=== PATIENT | female | born 1965 | race Two or more races ===

== ENCOUNTER 2025-06-27 01:07 | Emergency (ER) | payer OTHER ==
[~2025-06-27] VITALS: Ht 154.9 cm; Wt 77.1 kg
[2025-06-27] MEDS ORDERED: SYNTHROID100 MCG PO (01:15)
[2025-06-27] MEDS ORDERED: CORTISONE60 GM TP (01:15)
[2025-06-27] MEDS ORDERED: EZALLOR SPRINKL20 MG PO (01:16)
[2025-06-27] MEDS ORDERED: ATORVASTATIN CA10 MG PO (01:16)
[2025-06-27] MEDS ORDERED: DDAVP0.1 MG PO (01:16)
[2025-06-27] MEDS ORDERED: SEMAGLUTIDE (01:17)
[2025-06-27] MEDS ORDERED: METOCLOPRAMIDE HCL 10 MG TABLET PO STA (02:05)
[2025-06-27] MEDS ORDERED: FAMOtidine 10 MG/ML (4ML VIAL) IV PUSH STA (02:07)
[2025-06-27] MEDS ORDERED: 0.9 % SODIUM CHLORIDE 1,000 ML IV STA (02:07)
[2025-06-27] MEDS ORDERED: ONDANSETRON HCL 2 MG/ML VIAL IV STA (02:07)
[2025-06-27 02:45] LABS: BASO % 1.3 % (0.1-1.2); EOS # 0.14 (0.04-0.54); EOS % 1.3 % (0.7-7.0); LYMPH # 1.39 (1.18-3.74); LYMPH % 13.0 % (19.3-53.1); MEAN PLATELET VOLUME 10.70 fl (9.4-12.4); MONO # 0.78 (0.24-0.82); MONO % 7.3 % (4.7-12.5); NEUT # 8.23 (1.56-6.13); NEUT % 76.9 % (34.0-71.1); RED CELL DISTRIBUTION WIDTH 13.2 % (11.6-14.4)
[2025-06-27 03:06] LABS: ALT/SGPT 48.0 U/L (12-78); AST/SGOT 19.0 U/L (15-37); BILIRUBIN TOTAL 1.25 mg/dL (0.3-1.2); BILIRUBIN,CONJUGATED 0.29 mg/dL (0.0-0.2); BUN CREA RATIO 12.0 (7.0-25.0); GFR 45.39; GLOBULINA 4.2 G/DL (2.4-3.5); GLUCOSE FASTING 96.0 mg/dL (65-100); OSMOLALITY SERUM 282.0 MOSM/KG (275-295)
[2025-06-27 03:19] LABS: CREATININE SERUM 1.21 mg/dL (0.55-1.02)
== END 2025-06-27 04:21 | disposition home or self-care (01) ==
LOC: ER 01:07 → EMR PED 01:07 → ER 01:55
DX: T50.905A Adverse effect of unspecified drugs, medicaments and biological substances, initial encounter (principal); Y92.89 Other specified places as the place of occurrence of the external cause